=== PATIENT | female | born 1980 | race Caucasian/White ===

== ENCOUNTER 2017-10-22 11:28 | Inpatient (IN) ==
[2017-10-22] MEDS ORDERED: ZOFRAN 4 MG/2 ML IVP STA ×3 (11:37→18:29)
[2017-10-22] MEDS ORDERED: SODIUM CHLORIDE 1,000 ML IV STA (11:37)
[2017-10-22 11:44] VITALS: BP 122/70
--- NOTE | 2017-10-22 12:34 | DI ---
EXAM: CHEST FRONTAL AND LATERAL VIEWS HISTORY: Cough. COMPARISON: None FINDINGS: Heart size and mediastinal contour within normal limits. No acute infiltrates. Normal vascularity with no pleural fluid or pneumothorax. The bony thorax has no acute finding. IMPRESSION: No acute process.
--- NOTE | 2017-10-22 12:53 | CT ---
EXAM: CT Abdomen without contrast. CT Pelvis without contrast. HISTORY: Mid abdominal pain. COMPARISON: None available. TECHNIQUE: Multiple axial images of the abdomen and pelvis were obtained without intravenous contras t. Images were reformatted in the coronal plane. FINDINGS: Please note that evaluation of the abdominal and pelvic structures is limited due to lack of intravenous contrast. The lung bases are clear. No acute osseous abnormality is identified. The liver, gallbladder, pancreas, spleen, and adrenal glands demonstrate normal contour. Nonobstruct ing renal calculi present in both kidneys measuring up to 0.3 cm on the right and 0.1 cm on the left. No hydronephrosis or perinephric inflammation identified. No ureteral or bladder calculi are seen. Phleboliths noted in the pelvis. The bowel is normal in course and caliber without evidence for obstruction or inflammatory process. The appendix is normal. No free fluid or free air identified. Uterus demonstrates normal contour. Urinary bladder is unremarkable. IMPRESSION: 1. No acute abnormality within the abdomen or pelvis. 2. Bilateral nephrolithiasis.
--- NOTE | 2017-10-22 13:38 | ED.PDOC ---
General ED Provider: Dr. MATEO SMALLWOOD Chief Complaint: Nausea/Vomiting Stated Complaint: n/v abdominal pain Time Seen by Physician: 11:33 Mode of Arrival: Walk-In Information Source: Family Exam Limitations: No limitations Primary Care Provider: SCOTT AUGUSTINE Nursing and Triage Documentation Reviewed and Agree: Yes Reviewed sepsis parameters & appropriate labs ordered?: Yes System Inflammatory Response Syndrome: Not Applicable Sepsis Protocol: For patient's 13 years and over: Temp is 96.8 and below OR 101 and greater Pulse >90 BPM Resp >20/minute Acutely Altered Mental Status Are patient's symptoms suggestive of a new infection, such as: -Pneumonia -Skin, Soft Tissue -Endocarditis -UTI -Bone, Joint Infection -Implantable Device -Acute Abdominal Infection -Wound Infection -Meningitis -Blood Stream Catheter Infection -Unknown System Inflammatory Response Syndrome: Not Applicable GI Complaint Exam - Abdominal Pain Complaint/Exam Onset: Gradual (mother stated pt has been vomiting about) Duration: 1 day Symptoms Are: Resolved Timing: Intermittent Initial Severity: Mild Current Severity: Mild Location of Pain: Diffuse Radiates To: Denies: Back, Flank, LLQ Character: Reports: Aching Aggravating: Reports: None Alleviating: Reports: None Associated Signs and Symptoms: Reports: Cough, Nausea, Diarrhea. Denies: Diaphoresis, Fever, Chest pain, Dizziness, Back pain, Constipation, Blood in stool, Dysuria, Urinary frequency, Decreased urine output, Decreased appetite, Vaginal bleeding, Vaginal discharge, Vomiting, Sore throat, Decreased activity Related History: Reports: Similar episode AAA Risk Factors: Reports: None Cardiac Risk Factors: Reports: None Ectopic Risk Factors: Reports: None Ovarian Torsion Risk Factors: Reports: None Surgical Obstruction Risk Factors: Reports: None Related Surgical History: Reports: None Patient Rh Status: Unknown Abdominal Findings: Present: None Differential Diagnoses: Appendicitis, Bowel Obstruction, Constipation, Gastroenteritis, Renal Colic, UTI Review of Systems - Review Of Systems Constitutional: Reports: Malaise Eyes: Reports: No symptoms Ears, Nose, Mouth, Throat: Reports: No symptoms Respiratory: Reports: Cough Cardiac: Reports: No symptoms GI: Reports: Abdominal pain, Nausea, Poor appetite, Poor fluid intake : Reports: No symptoms Musculoskeletal: Reports: No symptoms Skin: Reports: No symptoms Neurological: Reports: No symptoms Endocrine: Reports: No symptoms Hematologic/Lymphatic: Reports: No symptoms All Other Systems: Reviewed and Negative Past Medical History - Past Medical History Previously Healthy: Yes Endocrine: Reports: None Cardiovascular: Reports: None Respiratory: Reports: None Hematological: Reports: None Gastrointestinal: Reports: None Genitourinary: Reports: None Neuro/Psych: Reports: Seizure Musculoskeletal: Reports: None Cancer: Reports: None Last Menstrual Period: N/A - Surgical History General Surgical History: Reports: None - Family History Family History: Reports: None - Social History Smoking Status: Never smoker Hx Substance Use: No Alcohol Screening: None - Immunizations Tetanus Shot up to Date: No Physical Exam - Physical Exam Appearance: Well-appearing, No pain distress, Well-nourished Eyes: GEMMA, EOMI, Conjunctiva clear ENT: Dry mucosa Respiratory: Airway patent, Breath sounds clear, Breath sounds equal, Respirations nonlabored Cardiovascular: RRR, Pulses normal, No rub, No murmur GI/: Soft, Nontender, No masses, Bowel sounds normal, No Organomegaly Musculoskeletal: Normal strength, ROM intact, No edema, No calf tenderness Skin: Warm, Dry, Normal color Neurological: Sensation intact, Motor intact, Reflexes intact, Cranial nerves intact, Alert, Oriented Psychiatric: Affect appropriate, Mood appropriate Physician Notification - Case Discussed Physician Notified: pmd Time of Notification: 13:42 (admitt clear liquid diet) Admit To: Inpatient Critical Care Note - Critical Care Note Total Time (mins): 0 Course - Course Hematology/Chemistry: 10/22/17 11:45 10/22/17 11:45 Orders, Labs, Meds: Lab Review 10/22/17 10/22/17 10/22/17 11:45 11:45 11:45 WBC 12.23 H RBC 4.59 Hgb 14.3 Hct 40.9 MCV 89.1 MCH 31.2 H MCHC 35.0 RDW Coeff of Beau 12.2 Plt Count 286 Immature Gran % (Auto) 0.3 Neut % (Auto) 79.9 Lymph % (Auto) 15.0 [place] % (Auto) 4.4 Eos % (Auto) 0.2 Baso % (Auto) 0.2 Immature Gran # (Auto) 0.0 Neut # (Auto) 9.8 H Lymph # (Auto) 1.8 [place] # (Auto) 0.5 Eos # (Auto) 0.0 Baso # (Auto) 0.0 Sodium 140 Potassium 3.6 Chloride 105 Carbon Dioxide 25 Anion Gap 13.6 BUN 9 Creatinine 0.83 Estimated GFR (MDRD) 77.00 BUN/Creatinine Ratio 10.84 Glucose 104 Calcium 9.4 Total Bilirubin 0.4 AST 19 ALT 24 Alkaline Phosphatase 64 Total Protein 7.5 Albumin 3.6 Globulin 3.9 Albumin/Globulin Ratio 0.92 Amylase 142 H Lipase 53 Procalcitonin < 0.05 Influ A Molecular Assay Influ B Molecular Assay 10/22/17 11:52 WBC RBC Hgb Hct MCV MCH MCHC RDW Coeff of Beau Plt Count Immature Gran % (Auto) Neut % (Auto) Lymph % (Auto) [place] % (Auto) Eos % (Auto) Baso % (Auto) Immature Gran # (Auto) Neut # (Auto) Lymph # (Auto) [place] # (Auto) Eos # (Auto) Baso # (Auto) Sodium Potassium Chloride Carbon Dioxide Anion Gap BUN Creatinine Estimated GFR (MDRD) BUN/Creatinine Ratio Glucose Calcium Total Bilirubin AST ALT Alkaline Phosphatase Total Protein Albumin Globulin Albumin/Globulin Ratio Amylase Lipase Procalcitonin Influ A Molecular Assay Negative by naat Influ B Molecular Assay Negative by naat Orders Category Date Time Status ED IV/MEDIPORT/POWERPORT .ONCE EMERGENCY 10/22/17 11:37 Active AMYLASE Stat LAB 10/22/17 11:45 Completed BLOOD CULTURE (ED ONLY) Stat LAB 10/22/17 11:45 Received CBC W/ AUTO DIFF Stat LAB 10/22/17 11:45 Completed COMPREHENSIVE METABOLIC PANEL Stat LAB 10/22/17 11:45 Completed FLU A/B MOLECULAR Stat LAB 10/22/17 11:52 Completed LIPASE Stat LAB 10/22/17 11:45 Completed MOLECULAR GROUP A STREP Stat LAB 10/22/17 11:52 Completed PROCALCITONIN Stat LAB 10/22/17 11:45 Completed URINALYSIS C & S IF INDICATED Stat LAB 10/22/17 11:36 Uncollected 0.9 % Sodium Chloride [Saline Flush] MEDS 10/22/17 11:36 Active 1 syr IVF PRN PRN Ondansetron HCl/Pf [Zofran 4 mg/2 ml] MEDS 10/22/17 11:37 Discontinued 4 mg IVP ONCE STA Sodium Chloride 0.9% [Sodium Chloride] 1,000 ml MEDS 10/22/17 11:37 Discontinued IV BOLUS CHEST, 2 VIEWS PA & LAT Stat RADS 10/22/17 11:[address] ABDOMEN/PELVIS WO CONTRAST Stat RADS 10/22/17 11:38 Completed Medications Generic Name Dose Route Start Last Admin Trade Name Freq PRN Reason Stop Dose Admin Sodium Chloride 1 syr 10/22/17 11:36 Saline Flush IVF PRN PRN To flush IV Discontinued Medications Generic Name Dose Route Start Last Admin Trade Name Freq PRN Reason Stop Dose Admin Sodium Chloride 1,000 mls @ 1,000 mls/hr 10/22/17 11:37 10/22/17 12:03 Sodium Chloride IV 10/22/17 12:36 1,000 mls/hr BOLUS STA Administration Ondansetron HCl 4 mg 10/22/17 11:37 10/22/17 12:03 Zofran 4 Mg/2 Ml IVP 10/22/17 11:38 4 mg ONCE STA Administration Vital Signs: Temp Pulse Resp BP Pulse Ox 10/22/17 11:29 98.1 F 92 H 20 122/70 97 Departure - Departure Time of Disposition: 13:43 (admitt per pmd ) Disposition: ADMITTED INPATIENT Discharge Problem: Nausea, Vomiting, Abdominal pain Condition: Good Pt referred to PMD for follow-up: Yes (admitt) IPMP verified?: No Allergies/Adverse Reactions: Allergies divalproex sodium [From Depakote] Adverse Reaction (Verified 10/22/17 12:25) Home Medications: Ambulatory Orders Ascorbic Acid [Vitamin C] 1,000 mg PO BID 10/22/17 Calcium Carbonate/Vitamin D3 [Calcium 600 + Vit D Tablet] 1 each PO BID Folic Acid 1 mg PO DAILY 10/22/17 Levetiracetam [Keppra] 750 mg PO BID 10/22/17 Mv-Min/Iron/Folic/Calcium/Vitk [Women's Daily Formula Tablet] 1 each PO DAILY Norethindrone-Ethinyl Estrad [Balziva] 1 each PO DAILY 10/22/17 Pyridoxine HCl [Vitamin B-6] 200 mg PO DAILY 10/22/17 Risperidone [Risperidone Odt] 0.5 mg PO PRN PRN 10/22/17 Ziprasidone HCl [Geodon] 40 mg PO BID 10/22/17 Disposition Discussed With: Family
[2017-10-22] MEDS ORDERED: SODIUM CHLORIDE 1,000 ML IV SCH ×2 (14:00→18:30)
[2017-10-22 17:51] VITALS: TEMP 98; BMI 27.5
[2017-10-22] MEDS ORDERED: KEPPRA PO STA (18:06)
--- NOTE | 2017-10-22 20:47 | CT ---
EXAM: CT scan of the chest, abdomen pelvis with and without contrast HISTORY: Nausea vomiting TECHNIQUE: Imaging of the chest, abdomen pelvis was performed before and after the intravenous admin istration of contrast. 5 mm thin axial images and coronal and sagittal reconstructions were provided for interpretation. Comparison CT scan of the abdomen and pelvis dated 10/22/2017. FINDINGS: The heart is normal size. No mediastinal abnormalities are seen. There is a normal appea odell of the thoracic aorta. Lungs are clear. Lung volumes are normal. The liver, spleen, pancreas, adrenal glands and kidneys appear normal. The proximal ureters are norm al size. The small and large bowel loops are normal in caliber. There is no free air. No retroperi toneal abnormalities are seen. The appendix appears normal. Small nonobstructing calculi are seen wi thin the calyces of the kidneys. The helical images obtained through the pelvis demonstrate a normal appearance of the rectum, urinary bladder. There is no free fluid seen within the pelvis. No lytic or blastic lesions are seen within the osseous structures. IMPRESSION: There is no bowel obstruction or acute inflammatory change seen within the abdomen and p chauncey. Nonobstructing nephrolithiasis seen within the kidneys. There is no ureteral obstruction.
[2017-10-22] MEDS ORDERED: ZIPRASIDONE HCL 40 MG PO SCH (21:00)
[2017-10-22] MEDS ORDERED: KEPPRA PO SCH (21:00)
[2017-10-22] MEDS ORDERED: KEPPRA 500 MG in SODIUM CHLORIDE 100 ML IV SCH (21:00)
[2017-10-22] MEDS ORDERED: NON-FORMULARY MEDICATION (Levetiracetam [Keppra] 750 MG) PO SCH (21:00)
--- NOTE | 2017-10-22 21:29 | CT ---
EXAM: CT of the head with and without IV contrast. HISTORY: Intractable vomiting COMPARISON: None available at the time of dictation. TECHNIQUE: Noncontrast CT of the head was performed followed by post IV contrast CT of the head wit h axial coronal and sagittal reconstructions obtained. Findings: There is preservation of the swan-white differential without evidence of defintive large vessel acute cortical infarct identified. No acute intracranial hemorrhage is identified. No intra-axial or ext ra-axial fluid collections are identified. No enhancing lesions, mass lesion or mass effect is ident ified. The basal cisterns are patent. The ventricles are normal in size configuration. Evaluation of the skull demonstrates no visualized lucent skull acute fractures or destructive osseous lesions i dentified within the skull. Limited imaging of the paranasal sinuses and mastoid air cells appear re latively clear. Impression: 1. No acute intracranial hemorrhage, definitive large vessel acute cortical infarct or enhancing int racranial masses are identified.
== END 2017-10-22 20:13 | disposition short-term general hospital (02) | DRG 392 ==
LOC: ED 11:28 → MEDSURG A 14:14
PROVIDERS: ADMIT Family Medicine; ATTEND Family Medicine
DX: R11.2 Nausea with vomiting, unspecified (principal); G40.909 Epilepsy, unspecified, not intractable, without status epilepticus; F31.9 Bipolar disorder, unspecified; G44.89 Other headache syndrome; R10.32 Left lower quadrant pain; R19.7 Diarrhea, unspecified; Z79.899 Other long term (current) drug therapy
CPT/HCPCS: 36415; 80053; 81001; 82150; 82962; 83690; 84145; 85025; 87040; 87502; 87651; 93005; 93010; 96360; 96366; 96376; 99284